=== PATIENT | female | born 1965 | race Caucasian/White ===

== ENCOUNTER 2023-06-05 13:24 | Emergency (ER) | payer OTHER ==
[2023-06-05 13:51] VITALS: BP 144/94; PULSE 66; RESP 18; TEMP 98.5; BMI 27.4
[2023-06-05] MEDS ORDERED: SODIUM CHLORIDE 0.9% 1000 ML INFUS.BAG IV ONE (14:03)
[2023-06-05] MEDS ORDERED: morphine CARPU-JECT 4 MG/1 ML DISP.SYRIN IVPUSH ONE (14:03)
[2023-06-05] MEDS ORDERED: morphine SULFATE 4 MG/ML VIAL ONE (14:06)
[2023-06-05] MEDS ORDERED: ONDANSETRON 4 MG/2 ML VIAL IVPUSH ONE (14:19)
[2023-06-05] MEDS ORDERED: ONDANSETRON 4 MG/2 ML VIAL ONE (14:23)
[2023-06-05 14:28] LABS: HEMATOCRIT 45.8 % (32.4-45.2); HEMOGLOBIN 15.2 G/dL (10.7-15.3); MCH 31.4 pg (25.7-33.7); MCHC 33.1 g/dl (32.0-36.0); MEAN CELL VOLUME 94.8 fl (80-96); MEAN PLT VOLUME 8.1 fl (7.5-11.1); PLATELET COUNT 290.3 10^3/uL (134-434); RBC 4.83 10^6/uL (3.60-5.2); RDW 14.3 % (11.6-15.6); WHITE BLOOD COUNT 11.3 10^3/uL (4.0-10.8)
[2023-06-05 14:48] LABS: ALBUMIN 4.1 g/dl (3.4-5.0); BILIRUBIN,TOTAL 0.5 mg/dl (0.2-1); CALCIUM 9.4 mg/dl (8.5-10.1); CREATININE 0.8 mg/dl (0.6-1.3); POTASSIUM 3.5 mmol/L (3.5-5.1); SGOT/AST 17.3 U/L (15-37); SGPT/ALT 19.5 U/L (7-52); TOT PROT 6.5 g/dl (6.4-8.2)
[2023-06-05 15:19] LABS: EPITHELIAL CELLS MODERATE /hpf
[2023-06-05 15:20] LABS: URINE MUCUS 1+
== END 2023-06-05 16:54 | disposition home or self-care (01) ==
LOC: FER 13:24
PROC: 3E033GC Introduction of Other Therapeutic Substance into Peripheral Vein, Percutaneous Approach (ICD-10-PCS; principal; 2023-06-05)
PROC: 3E033GC Introduction of Other Therapeutic Substance into Peripheral Vein, Percutaneous Approach (ICD-10-PCS; 2023-06-05)
DX: R10.9 Unspecified abdominal pain (principal); R11.10 Vomiting, unspecified; R50.9 Fever, unspecified; N23 Unspecified renal colic
CPT/HCPCS: 36415; 74176-TC; 76775-TC; 80053; 81003; 81015; 85027; 87086; 99284-25